=== PATIENT | male | born 1995 | race Caucasian/White ===

== ENCOUNTER 2020-10-09 09:54 | Emergency (ER) | payer OTHER ==
[~2020-10-09] VITALS: Ht 182.9 cm; Wt 117.9 kg
[2020-10-09] MEDS ORDERED: CEPHALEXIN500 MG PO (11:35)
[2020-10-09] MEDS ORDERED: HYDROCODON-ACE1 EAC7 PO (11:35)
[2020-10-09 11:54] VITALS: BP 139/89
== END 2020-10-09 11:56 | disposition home or self-care (01) ==
LOC: M.ERS 09:54
DX: S61.215A Laceration without foreign body of left ring finger without damage to nail, initial encounter (principal); W26.8XXA Contact with other sharp object(s), not elsewhere classified, initial encounter; Y93.89 Activity, other specified; Y92.69 Other specified industrial and construction area as the place of occurrence of the external cause; Y99.9 Unspecified external cause status